=== PATIENT | male | born 1975 | race Caucasian/White ===

== ENCOUNTER 2016-10-22 15:56 | Day surgery (SDCO) | payer OTHER ==
[~2016-10-22] VITALS: Ht 178 cm; Wt 92.0 kg
[~2016-10-22 15:56] MED LIST: ELIQUIS5 MG PO; FARXIGA10 MG PO; JANUVIA50 MG PO; LANTUS **100 UNITS/ SQ; LEVAQUIN500 MG PO; METFORMIN HCL500 MG PO; NADOLOL 20MG TA20 MG PO; NORCO 5-325 TA1 EACH PO; VENTOLIN HFA IN18 GM INH; ZANTAC150 MG PO
[2016-10-22 16:40] LABS: BASOPHIL 0.2 % (0-2); HCT 44.8 % (42.0-52.0); HGB 15.2 g/dl (13.2-18.0); LYMPHOCYTE 14.8 % (15-48); MCH 29.4 pg (25.0-31.0); MCHC 33.9 g/dL (32.0-36.0); MCV 86.7 fL (78.0-100.0); MONOCYTE 8.3 % (0-12); NEUTROPHIL 75.7 % (41-80); PLT 277 K/uL (150-400); RBC 5.17 M/uL (4.70-6.00); RDW 13.7 % (11.5-14.0); WBC 12.5 K/uL (4.0-10.5)
[2016-10-22 16:59] LABS: CREATININE 0.9 mg/dL (0.7-1.2); POTASSIUM 4.3 mmol/L (3.5-5.1)
[2016-10-23 05:47] LABS: HCT 43.2 % (42.0-52.0); HGB 14.3 g/dl (13.2-18.0); MCH 29.1 pg (25.0-31.0); MCHC 33.1 g/dL (32.0-36.0); MPV 9.7 fL (6.0-9.5); RBC 4.91 M/uL (4.70-6.00); RDW 13.8 % (11.5-14.0); WBC 9.9 K/uL (4.0-10.5)
[2016-10-23 06:10] LABS: CREATININE 0.9 mg/dL (0.7-1.2); POTASSIUM 4.2 mmol/L (3.5-5.1)
== END 2016-10-23 11:48 | disposition home or self-care (01) ==
LOC: FER 15:56 → FMS 18:00
PROVIDERS: Emergency Medicine; ADMIT Surgery
DX: K61.1 Rectal abscess (principal); I10 Essential (primary) hypertension; E11.9 Type 2 diabetes mellitus without complications; J45.909 Unspecified asthma, uncomplicated; Z79.84 Long term (current) use of oral hypoglycemic drugs; Z79.899 Other long term (current) drug therapy
CPT/HCPCS: 36415; 80048; 82962; 85025; 87070; 87075; 87077; 87186; 87205; G0378; J1170; J1885; J1956; J2270; J2704; J3010; Q9967

== ENCOUNTER 2020-09-14 18:01 | Inpatient (IN) | payer OTHER ==
[~2020-09-14] VITALS: Ht 177.8 cm; Wt 85.8 kg
[2020-09-14 19:46] LABS: BASOPHIL 0.4 % (0-2); EOSINOPHIL 0.6 % (0-5); HCT 42.8 % (42.0-52.0); HGB 13.9 g/dl (13.2-18.0); LYMPHOCYTE 8.9 % (15-48); MCH 29.7 pg (25.0-31.0); MCHC 32.5 g/dL (32.0-36.0); MCV 91.5 fL (78.0-100.0); MONOCYTE 10.9 % (0-12); MPV 9.8 fL (6.0-9.5); NEUTROPHIL 77.1 % (41-80); NRBC 0; PLT 438 K/uL (150-400); RBC 4.68 M/uL (4.70-6.00); RDW 13.6 % (11.5-14.0); WBC 11.9 K/uL (4.0-10.5)
[2020-09-14 19:59] LABS: ALBUMIN 2.5 g/dL (3.4-5.0); BILIRUBIN - TOTAL 0.5 mg/dL (0.2-1.0); BUN/CREAT RATIO (CALC) 12.7 RATIO; CREATININE 0.63 mg/dL (0.67-1.17); GLOBULIN (CALCULATION) 4.9 g/dL; POTASSIUM 4.8 mmol/L (3.5-5.1); TOTAL PROTEIN 7.4 g/dL (6.4-8.2)
[2020-09-15] MEDS ORDERED: LISINOPRIL10 MG PO (00:23)
[2020-09-15] MEDS ORDERED: MELOXICAM15 MG PO (00:24)
[2020-09-15] MEDS ORDERED: LIPITOR40 MG PO (00:25)
[2020-09-15] MEDS ORDERED: PROZAC20 MG PO (00:25)
[2020-09-15] MEDS ORDERED: VENTOLIN HFA IN18 GM INH (00:26)
[2020-09-15] MEDS ORDERED: SINGULAIR10 MG PO (00:26)
[2020-09-15] MEDS ORDERED: FARXIGA10 MG PO (00:27)
[2020-09-15] MEDS ORDERED: JANUMET 50-1,01 EACH PO (00:28)
[2020-09-15 06:11] LABS: BASOPHIL 0.5 % (0-2); HCT 42.2 % (42.0-52.0); HGB 13.3 g/dl (13.2-18.0); LYMPHOCYTE 10.8 % (15-48); MCH 29.6 pg (25.0-31.0); MCHC 31.5 g/dL (32.0-36.0); MONOCYTE 12.8 % (0-12); MPV 9.4 fL (6.0-9.5); NEUTROPHIL 72.5 % (41-80); NRBC 0; PLT 432 K/uL (150-400); RBC 4.49 M/uL (4.70-6.00); RDW 13.9 % (11.5-14.0)
[2020-09-15 06:29] LABS: BUN/CREAT RATIO (CALC) 15.5 RATIO; CREATININE 0.71 mg/dL (0.67-1.17); POTASSIUM 4.5 mmol/L (3.5-5.1)
[2020-09-15] MEDS ORDERED: PERCOCET 5-3251 EACH PO (10:07)
[2020-09-15] MEDS ORDERED: AUGMENTIN 875-1 EACH PO (10:07)
[2020-09-16 06:23] LABS: BASOPHIL 0.2 % (0-2); EOSINOPHIL 0 % (0-5); HCT 40.4 % (42.0-52.0); HGB 12.9 g/dl (13.2-18.0); LYMPHOCYTE 11.4 % (15-48); MCH 29.6 pg (25.0-31.0); MCHC 31.9 g/dL (32.0-36.0); MCV 92.7 fL (78.0-100.0); MONOCYTE 8.9 % (0-12); MPV 9.8 fL (6.0-9.5); NEUTROPHIL 76.9 % (41-80); NRBC 0; PLT 503 K/uL (150-400); RBC 4.36 M/uL (4.70-6.00); RDW 13.6 % (11.5-14.0); WBC 10.8 K/uL (4.0-10.5)
[2020-09-16 06:41] LABS: BUN/CREAT RATIO (CALC) 17.2 RATIO; CREATININE 0.64 mg/dL (0.67-1.17); POTASSIUM 4.1 mmol/L (3.5-5.1)
[2020-09-17] MEDS ORDERED: GLUCOTROL XL5 MG PO (15:59)
[2020-09-17] MEDS ORDERED: MEDROL 4MG DOSEP4 MG PO (15:59)
--- NOTE | 2020-09-17 16:13 | NUR ---
09/17/20 02 was ordered from [facility] per patient choice.
[2020-09-17] MEDS ORDERED: VENTOLIN HFA IN18 GM INH (17:09)
== END 2020-09-17 18:00 | disposition home or self-care (01) | DRG 177 ==
LOC: FER 18:01 → FMS 22:59
PROVIDERS: Allergy & Immunology Allergy; Emergency Medicine; Nurse Practitioner; ADMIT Internal Medicine
PROC: XW033E5 Introduction of Remdesivir Anti-infective into Peripheral Vein, Percutaneous Approach, New Technology Group 5 (ICD-10-PCS; principal; 2020-09-16)
DX: U07.1 COVID-19 (principal); J12.82 Pneumonia due to coronavirus disease 2019; J96.01 Acute respiratory failure with hypoxia; K61.1 Rectal abscess; E11.65 Type 2 diabetes mellitus with hyperglycemia; D64.9 Anemia, unspecified; E78.5 Hyperlipidemia, unspecified; I10 Essential (primary) hypertension; Z79.899 Other long term (current) drug therapy; Z87.891 Personal history of nicotine dependence; Z98.890 Other specified postprocedural states
CPT/HCPCS: 36415; 36600; 71045; 72193; 80048; 80053; 82803; 82962; 83036; 85025; 94762; C9399; J1100; J1170; J1650; J2270; J2405; J2543; J7030; J7050; Q9967; U0002